=== PATIENT | male | born 1950 | race Caucasian/White ===

== ENCOUNTER 2020-04-01 10:06 | Observation (INO) | payer MEDICARE, OTHER ==
[~2020-04-01] VITALS: Ht 190.5 cm; Wt 180.0 kg
[2020-04-01 10:47] LABS: BASOPHILS % (AUTO) 0.3 % (0-1); EOSINOPHILS # (AUTO) 0.1 X10'3 (0-0.9); EOSINOPHILS % (AUTO) 1.1 % (0-6); HEMATOCRIT 44.9 % (42.0-52.0); HEMOGLOBIN 15.1 g/dl (14.0-17.9); LYMPHOCYTES # (AUTO) 1.7 X10'3 (1.1-4.8); LYMPHOCYTES % (AUTO) 24.9 % (21-51); MEAN CORPUSCULAR HEMOGLOBIN 30.6 PG (27.0-31.0); MEAN CORPUSCULAR HGB CONC 33.6 g/dL (33.0-36.5); MEAN PLATELET VOLUME 8.4 FL (7.4-10.4); MONOCYTES # (AUTO) 0.6 X10'3 (0-0.9); MONOCYTES % (AUTO) 8.4 % (2-12); NEUTROPHILS # (AUTO) 4.4 X10'3 (1.8-7.7); NEUTROPHILS % (AUTO) 65.3 % (42-75); PLATELET COUNT 202 X10'3 (140-440); RED BLOOD COUNT 4.93 X10'6 (4.70-6.10); RED CELL DISTRIBUTION WIDTH 13.4 % (11.5-14.5); WHITE BLOOD COUNT 6.8 X10'3 (4.5-11.0)
[2020-04-01 11:00] LABS: ALANINE AMINOTRANSFERASE 51 U/L (12-78); ALBUMIN 3.8 G/DL (3.4-5.0); ALKALINE PHOSPHATASE 82 IU/L (46-116); ANION GAP 3 (8-16); ASPARTATE AMINO TRANSFERASE 19 U/L (10-37); BILIRUBIN,TOTAL 0.4 MG/DL (0.1-1.0); BLOOD UREA NITROGEN 15 MG/DL (7-18); BUN/CREATININE RATIO 18.3 (5.4-32.0); CALCIUM 8.7 MG/DL (8.5-10.1); CHLORIDE 106 MMOL/L (99-107); CREATININE 0.82 MG/DL (0.60-1.10); GLUCOSE 108 MG/DL (70-104); POTASSIUM 3.8 MMOL/L (3.5-5.1); SODIUM 137 MMOL/L (135-145); TOTAL CARBON DIOXIDE 27.7 MMOL/L (24-32); TOTAL PROTEIN 7.6 G/DL (6.4-8.2); eGFR > 90 ML/MIN
[2020-04-01] MEDS ORDERED: metoprolol tartrate 1mg/ml inj IV ONE (11:25)
[2020-04-01] MEDS ORDERED: aspirin 81mg tab.chew PO ONE (11:40)
[2020-04-01] MEDS ORDERED: NO HOME MEDS (12:01)
[2020-04-01] MEDS ORDERED: acetaminophen 325mg tablet PO PRN (12:10)
[2020-04-01] MEDS ORDERED: ondansetron/PF 4mg/2ml inj IV PRN (12:10)
[2020-04-01] MEDS ORDERED: morphine 2 MG/ML inj. syringe IV PRN ×2 (12:10)
[2020-04-01] MEDS ORDERED: magnesium hydroxide 30ml (MOM) UD suspension PO PRN (12:10)
[2020-04-01] MEDS ORDERED: mag hydrox/Alum hydrox/simeth 30ml oral suspension PO PRN (12:10)
[2020-04-01] MEDS: normal saline 1000ml 1,000 ML IV SCH ×2 (12:17→22:07)
--- NOTE | 2020-04-01 13:23 | NUR ---
Report attempted, GILBERTO Frey to call back.
--- NOTE | 2020-04-01 13:45 | NUR ---
Received report from Bharati RN. Patient arrived on floor @ 1345. Patient alert, oriented and appropriate. He is in no apparent distress. Sheila has no c/o chest pain at this time.
[2020-04-01 13:56] VITALS: BP 142/88
[2020-04-01 15:00] VITALS: BP 148/91
[2020-04-01] MEDS ORDERED: metoprolol tartrate 1mg/ml inj IV PRN (16:25)
[2020-04-01] MEDS ORDERED: regadenoson 0.4mg/5ml syringe IV PRN (16:25)
[2020-04-01] MEDS ORDERED: nitroGLYCERIN 0.4mg SUBLingual tab SL PRN (16:25)
[2020-04-01] MEDS ORDERED: aminophylline 250mg/10ml inj. IV PRN (16:25)
[2020-04-01 18:00] VITALS: BP 136/82
--- NOTE | 2020-04-01 18:00 | NUR ---
Problems reprioritized. Patient report given, questions answered & plan of care reviewed with Kita RN[]. Patient resting comfortably in bed no c/o chest pain at this time. Patient alert, oriented, and appropriate.
[2020-04-01] MEDS: heparin, porcine 5000 units/ml vial SQ SCH (19:15)
[2020-04-01] MEDS: carVEDilol 3.125mg tablet PO SCH (19:15)
[2020-04-01 22:00] VITALS: BP 125/81
[2020-04-02] VITALS (10 sets, daily range): BP systolic 121–141; BP diastolic 80–88
--- NOTE | 2020-04-02 06:15 | NUR ---
Problems reprioritized. Patient report given, questions answered & plan of care reviewed with Fransisco MACIAS.
--- NOTE | 2020-04-02 06:46 | NUR ---
Patient in room PCU 3012. I have received report from Kita MACIAS and had the opportunity to ask questions and assume patient care.
[2020-04-02] MEDS: heparin, porcine 5000 units/ml vial SQ SCH (08:00)
[2020-04-02] MEDS ORDERED: aspirin 81mg tablet.DR PO SCH (08:00)
[2020-04-02] MEDS: carVEDilol 3.125mg tablet PO SCH (08:00)
--- NOTE | 2020-04-02 14:36 | NUR ---
Page sent to Dr. Pleitez: PAGER ID: [phone] MESSAGE: [id number] Scott Lorenzo: Lor results are negative. Thanks, [phone]
[2020-04-02] MEDS ORDERED: CARV3.12 PO (14:40)
--- NOTE | 2020-04-02 14:56 | NUR ---
Patient stable for discharge per MD order. No new Rx. IV discontinued with catheter in tact, electronic device monitor removed, patient belongings packed and sent with patient, wheeled down to lobby and driven home in private vehicle by .
== END 2020-04-02 15:55 | disposition home or self-care (01) ==
LOC: ER 10:07 → ED HOLD 12:07 → PCU 3S 13:38
PROVIDERS: ADMIT Family Medicine; ATTEND Family Medicine
DX: R07.89 Other chest pain (principal); R42 Dizziness and giddiness; R06.02 Shortness of breath; I10 Essential (primary) hypertension; E78.00 Pure hypercholesterolemia, unspecified; Z87.891 Personal history of nicotine dependence; Z79.899 Other long term (current) drug therapy
CPT/HCPCS: 36415; 71045; 78452; 80053; 83880; 84484; 85025; 87081; 93005; 93017; 96361; 96372; 96374; 99285; A9500; G0378; J1644; J2785; J7030; J3490

== ENCOUNTER 2020-04-17 05:57 | Day surgery (SDC) | payer MEDICARE, OTHER ==
[2020-04-16 08:40] LABS: BASOPHILS % (AUTO) 0.5 % (0-1); EOSINOPHILS # (AUTO) 0.1 X10'3 (0-0.9); EOSINOPHILS % (AUTO) 1.2 % (0-6); HEMATOCRIT 43.9 % (42.0-52.0); HEMOGLOBIN 14.8 g/dl (14.0-17.9); LYMPHOCYTES # (AUTO) 1.9 X10'3 (1.1-4.8); LYMPHOCYTES % (AUTO) 29.8 % (21-51); MEAN CORPUSCULAR HEMOGLOBIN 30.7 PG (27.0-31.0); MEAN CORPUSCULAR HGB CONC 33.6 g/dL (33.0-36.5); MEAN CORPUSCULAR VOLUME 91.4 FL (78-98); MEAN PLATELET VOLUME 8.6 FL (7.4-10.4); MONOCYTES # (AUTO) 0.5 X10'3 (0-0.9); MONOCYTES % (AUTO) 7.5 % (2-12); NEUTROPHILS # (AUTO) 3.9 X10'3 (1.8-7.7); PLATELET COUNT 203 X10'3 (140-440); RED BLOOD COUNT 4.81 X10'6 (4.70-6.10); RED CELL DISTRIBUTION WIDTH 13.8 % (11.5-14.5); WHITE BLOOD COUNT 6.4 X10'3 (4.5-11.0)
[2020-04-16 08:46] LABS: ALBUMIN 3.7 G/DL (3.4-5.0); ANION GAP 11 (8-16); BLOOD UREA NITROGEN 15 MG/DL (7-18); BUN/CREATININE RATIO 19.5 (5.4-32.0); CALCIUM 8.7 MG/DL (8.5-10.1); CHLORIDE 105 MMOL/L (99-107); CREATININE 0.77 MG/DL (0.60-1.10); GLUCOSE 96 MG/DL (70-104); POTASSIUM 3.9 MMOL/L (3.5-5.1); SODIUM 141 MMOL/L (135-145); TOTAL CARBON DIOXIDE 25.2 MMOL/L (24-32); eGFR > 90 ML/MIN
[2020-04-16 08:49] LABS: PARTIAL THROMBOPLASTIN TIME 27 SECONDS (22-32)
[~2020-04-17] VITALS: Ht 190.5 cm; Wt 124.0 kg
[2020-04-17] VITALS (10 sets, daily range): BP systolic 112–151; BP diastolic 67–85
[~2020-04-17 05:57] MED LIST: CARV3.12 PO
[2020-04-17] MEDS ORDERED: LORazepam 0.5 MG tablet PO PRN (06:10)
[2020-04-17] MEDS ORDERED: normal saline 1,000 ML IV SCH (06:10)
[2020-04-17] MEDS ORDERED: diphenhydrAMINE 25mg capsule PO PRN (06:10)
[2020-04-17] MEDS ORDERED: CARV6.253 PO (06:31)
[2020-04-17] MEDS ORDERED: ATOR20TA PO (06:43)
[2020-04-17] MEDS ORDERED: chromium PO (06:45)
[2020-04-17] MEDS ORDERED: GLUC-150 PO (06:46)
[2020-04-17] MEDS ORDERED: prevagen PO (06:47)
[2020-04-17] MEDS ORDERED: TURM500C4 PO (06:48)
[2020-04-17] MEDS ORDERED: fentaNYL/PF 50MCG/1 ML 2ML syringe ONE (07:35)
[2020-04-17] MEDS ORDERED: nitroGLYCERIN-Tridil 50MG/D5W 250 ML IV ONE (07:35)
[2020-04-17] MEDS ORDERED: midazolam 2 mg/2 ml injection ONE (07:35)
[2020-04-17] MEDS ORDERED: iohexol 350MG/ML 100ml bottle IV ONE (07:35)
[2020-04-17] MEDS ORDERED: iohexol 350 MG/ML 50ML vial IV ONE (07:35)
[2020-04-17] MEDS ORDERED: LIDOcaine 1% (10mg/ml)w/preservative injection 20ml MDV ONE (07:35)
[2020-04-17] MEDS ORDERED: heparin 1,000unit/ml 10ml vial 10 ML ONE (07:35)
[2020-04-17] MEDS ORDERED: verapamil 2.5 mg/ml inj IV ONE (07:35)
[2020-04-17 09:00] LABS: ISTAT HGB ART 14.6 g/dl (14.0-18.0); ISTAT Hct ART 43 %PCV (42-52); ISTAT O2 SATURATION ARTERIAL 94 % (95-98); ISTAT SOURCE ART
[2020-04-17] MEDS ORDERED: normal saline 1000ml 1,000 ML IV SCH (09:25)
== END 2020-04-17 14:10 | disposition home or self-care (01) ==
LOC: SSTAY O 05:57
PROVIDERS: ATTEND Internal Medicine Cardiovascular Disease
DX: R94.39 Abnormal result of other cardiovascular function study (principal); I25.10 Atherosclerotic heart disease of native coronary artery without angina pectoris; I10 Essential (primary) hypertension; E78.5 Hyperlipidemia, unspecified; E66.9 Obesity, unspecified; Z68.35 Body mass index [BMI] 35.0-35.9, adult; Z79.01 Long term (current) use of anticoagulants; Z87.891 Personal history of nicotine dependence; Z72.89 Other problems related to lifestyle; Z98.890 Other specified postprocedural states
CPT/HCPCS: 36415; 80048; 82803; 85014; 85025; 85610; 85730; 93005; 93460; 99152; 99153; C1769; C1894; J1644; J2001; J2250; J3010; Q9967; A4620; C1751; J3490

== ENCOUNTER 2023-07-02 18:42 | Emergency (ER) | payer MEDICARE, OTHER ==
[~2023-07-02] VITALS: Ht 190.5 cm; Wt 122.8 kg
[~2023-07-02 18:42] MED LIST changes: +ATOR20TA PO; -CARV3.12 PO; +CARV6.253 PO; +GLUC-150 PO; +TURM500C4 PO; +chromium PO; +prevagen PO
[2023-07-02 19:10] VITALS: TEMP 97.6
[2023-07-02 19:55] LABS: BASOPHILS % (AUTO) 0.5 % (0-1); EOSINOPHILS # (AUTO) 0.1 X10'3 (0-0.9); EOSINOPHILS % (AUTO) 1.5 % (0-6); HEMATOCRIT 44.8 % (42.0-52.0); HEMOGLOBIN 15.2 g/dl (14.0-17.9); LYMPHOCYTES # (AUTO) 2.2 X10'3 (1.1-4.8); LYMPHOCYTES % (AUTO) 27.2 % (21-51); MEAN CORPUSCULAR HEMOGLOBIN 31.8 PG (27.0-31.0); MEAN CORPUSCULAR HGB CONC 33.9 g/dL (33.0-36.5); MEAN CORPUSCULAR VOLUME 93.8 FL (78-98); MEAN PLATELET VOLUME 8.3 FL (7.4-10.4); MONOCYTES # (AUTO) 0.8 X10'3 (0-0.9); MONOCYTES % (AUTO) 9.8 % (2-12); PLATELET COUNT 220 X10'3 (140-440); RED BLOOD COUNT 4.77 X10'6 (4.70-6.10); RED CELL DISTRIBUTION WIDTH 13.8 % (11.5-14.5); WHITE BLOOD COUNT 8.3 X10'3 (4.5-11.0)
[2023-07-02 20:00] LABS: ALANINE AMINOTRANSFERASE 61 U/L (12-78); ALBUMIN 3.8 G/DL (3.4-5.0); ALBUMIN/GLOBULIN RATIO 1.1 (1.1-1.5); ALKALINE PHOSPHATASE 80 IU/L (46-116); ANION GAP 8 (8-16); ASPARTATE AMINO TRANSFERASE 29 U/L (10-37); BILIRUBIN,TOTAL 0.4 MG/DL (0.1-1.0); BLOOD UREA NITROGEN 16 MG/DL (7-18); BUN/CREATININE RATIO 20.5 (10.0-20.0); CALCIUM 9.1 MG/DL (8.5-10.1); CHLORIDE 103 MMOL/L (99-107); CREATININE 0.78 MG/DL (0.60-1.10); GLUCOSE 110 MG/DL (70-104); POTASSIUM 3.9 MMOL/L (3.5-5.1); SODIUM 138 MMOL/L (135-145); TOTAL CARBON DIOXIDE 27.4 MMOL/L (24-32); TOTAL PROTEIN 7.3 G/DL (6.4-8.2); eCRCL 105 ML/MIN; eGFR > 90 ML/MIN
[2023-07-02 20:08] LABS: PRO BRAIN NATRIURETIC PEPTIDE < 30 PG/ML (0-125)
[2023-07-02 20:43] VITALS: BP 168/103; PULSE 74; RESP 18; O2SAT 91
== END 2023-07-02 21:12 | disposition home or self-care (01) ==
LOC: ER 18:44
DX: R03.0 Elevated blood-pressure reading, without diagnosis of hypertension (principal); I10 Essential (primary) hypertension; R42 Dizziness and giddiness; E78.00 Pure hypercholesterolemia, unspecified; Z79.899 Other long term (current) drug therapy
CPT/HCPCS: 36415; 71045; 80053; 83880; 84484; 85025; 93005; 99285

== ENCOUNTER 2024-10-16 08:17 | Inpatient (IN) | payer MEDICARE, OTHER ==
[~2024-10-16] VITALS: Ht 190.5 cm; Wt 140.8 kg
[2024-10-16 09:10] LABS: BASOPHILS % (AUTO) 0.2 % (0-1); EOSINOPHILS # (AUTO) 0.1 X10'3 (0-0.9); EOSINOPHILS % (AUTO) 0.8 % (0-6); HEMATOCRIT 40.4 % (42.0-52.0); HEMOGLOBIN 13.6 g/dl (14.0-17.9); LYMPHOCYTES # (AUTO) 1.7 X10'3 (1.1-4.8); LYMPHOCYTES % (AUTO) 18.9 % (21-51); MEAN CORPUSCULAR HEMOGLOBIN 31.6 PG (27.0-31.0); MEAN CORPUSCULAR HGB CONC 33.7 g/dL (33.0-36.5); MEAN CORPUSCULAR VOLUME 93.8 FL (78-98); MEAN PLATELET VOLUME 8.4 FL (7.4-10.4); MONOCYTES # (AUTO) 0.6 X10'3 (0-0.9); MONOCYTES % (AUTO) 6.1 % (2-12); NEUTROPHILS # (AUTO) 6.7 X10'3 (1.8-7.7); PLATELET COUNT 203 X10'3 (140-440); RED CELL DISTRIBUTION WIDTH 14.3 % (11.5-14.5)
[2024-10-16 09:29] LABS: ALANINE AMINOTRANSFERASE 56 U/L (12-78); ALBUMIN 3.5 G/DL (3.4-5.0); ALKALINE PHOSPHATASE 64 IU/L (46-116); ANION GAP 6 (8-16); ASPARTATE AMINO TRANSFERASE 21 U/L (10-37); BILIRUBIN,TOTAL 0.6 MG/DL (0.1-1.0); BLOOD UREA NITROGEN 21 MG/DL (7-18); BUN/CREATININE RATIO 33.9 (10.0-20.0); CALCIUM 8.5 MG/DL (8.5-10.1); CHLORIDE 102 MMOL/L (99-107); CREATININE 0.62 MG/DL (0.60-1.10); GLUCOSE 140 MG/DL (70-104); LIPASE 42 U/L (16-77); POTASSIUM 3.9 MMOL/L (3.5-5.1); SODIUM 138 MMOL/L (135-145); TOTAL CARBON DIOXIDE 29.8 MMOL/L (24-32); TOTAL PROTEIN 7.1 G/DL (6.4-8.2); eCRCL 129 ML/MIN; eGFR > 90 ML/MIN
[2024-10-16] MEDS: normal saline 1000ML IV soln IVB ONE (10:19)
[2024-10-16] MEDS: pantoprazole 40 MG vial IV SCH ×2 (10:19→20:14)
[2024-10-16] MEDS ORDERED: LISI40TA13 PO (10:32)
[2024-10-16] MEDS ORDERED: HYDR12.55 PO (10:33)
[2024-10-16] MEDS ORDERED: PANT-47 PO (10:33)
[2024-10-16] MEDS ORDERED: HYDROcodone/acetaminophen 5mg/325mg tablet PO PRN (12:20)
[2024-10-16] MEDS ORDERED: magnesium sulf-water 2g/50mL 50 ML IV PRN (12:20)
[2024-10-16] MEDS ORDERED: mag hydrox/Alum hydrox/simeth 30ml oral suspension PO PRN (12:20)
[2024-10-16] MEDS ORDERED: potassium Cl 20 mEq SR tablet PO PRN ×2 (12:20)
[2024-10-16] MEDS ORDERED: potassium Cl 40MEQ/1/2NS 520ml 520 ML IV PRN (12:20)
[2024-10-16] MEDS ORDERED: magnesium sulf-water 4G/100mL 100 ML IV PRN (12:20)
[2024-10-16] MEDS ORDERED: acetaminophen 325mg tablet PO PRN ×2 (12:20)
[2024-10-16] MEDS ORDERED: ondansetron/PF 4mg/2ml inj IV PRN (12:20)
[2024-10-16] MEDS ORDERED: magnesium Cl slow-release 64mg tablet PO PRN (12:20)
[2024-10-16] MEDS ORDERED: HYDROcodone/acetaminophen 10/325mg tab PO PRN (12:20)
[2024-10-16] MEDS ORDERED: magnesium hydroxide 30ml (MOM) UD suspension PO PRN (12:20)
[2024-10-16] MEDS ORDERED: LORazepam 1 MG tablet PO PRN (12:25)
[2024-10-16] MEDS ORDERED: haloperidol lactate 5mg/ml inj IM PRN (12:25)
[2024-10-16] MEDS ORDERED: LORazepam 2 mg/ml vial IV PRN (12:25)
[2024-10-16] MEDS ORDERED: haloperidol 5mg tablet PO PRN (12:25)
[2024-10-16] MEDS: folic acid 1mg tablet PO ONE (12:32)
[2024-10-16] MEDS: thiamine 100mg tablet PO ONE (12:32)
[2024-10-16 14:58] LABS: OCCULT BLOOD STOOL POSITIVE (Neg)
[2024-10-16] MEDS: pantoprazole 40 MG vial IV ONE (15:29)
[2024-10-16] MEDS ORDERED: OXYM30SP26 BOTHNARES (19:53)
[2024-10-16] MEDS: K and/or MAG REPLACEMENT MC SCH (20:06)
[2024-10-16] MEDS: docusate sod 100mg capsule PO SCH (20:14)
[2024-10-16] MEDS: carvedilol 6.25mg tablet PO SCH (20:14)
[2024-10-16] MEDS: atorvastatin 20mg tablet PO SCH (21:00)
[2024-10-16] MEDS: oxymetazoline 15 ML nasal spray NS PRN (22:11)
[2024-10-17] VITALS (17 sets, daily range): BP systolic 131–162; BP diastolic 71–95; PULSE 77–89; RESP 10–20; TEMP 97.5–97.7; O2SAT 90–97
[2024-10-17 03:21] LABS: BASOPHILS % (AUTO) 0.3 % (0-1); EOSINOPHILS # (AUTO) 0.1 X10'3 (0-0.9); HEMATOCRIT 35.1 % (42.0-52.0); HEMOGLOBIN 12.1 g/dl (14.0-17.9); LYMPHOCYTES # (AUTO) 1.8 X10'3 (1.1-4.8); LYMPHOCYTES % (AUTO) 19.8 % (21-51); MEAN CORPUSCULAR HEMOGLOBIN 32.5 PG (27.0-31.0); MEAN CORPUSCULAR HGB CONC 34.5 g/dL (33.0-36.5); MEAN CORPUSCULAR VOLUME 94.3 FL (78-98); MEAN PLATELET VOLUME 8.4 FL (7.4-10.4); MONOCYTES # (AUTO) 0.6 X10'3 (0-0.9); MONOCYTES % (AUTO) 7.2 % (2-12); NEUTROPHILS # (AUTO) 6.3 X10'3 (1.8-7.7); NEUTROPHILS % (AUTO) 71.7 % (42-75); PLATELET COUNT 176 X10'3 (140-440); RED BLOOD COUNT 3.72 X10'6 (4.70-6.10); RED CELL DISTRIBUTION WIDTH 14.2 % (11.5-14.5); WHITE BLOOD COUNT 8.8 X10'3 (4.5-11.0)
[2024-10-17 03:40] LABS: ALANINE AMINOTRANSFERASE 48 U/L (12-78); ALBUMIN 3.1 G/DL (3.4-5.0); ALBUMIN/GLOBULIN RATIO 1.1 (1.1-1.5); ALKALINE PHOSPHATASE 59 IU/L (46-116); ANION GAP 5 (8-16); ASPARTATE AMINO TRANSFERASE 26 U/L (10-37); BILIRUBIN,TOTAL 0.5 MG/DL (0.1-1.0); BLOOD UREA NITROGEN 16 MG/DL (7-18); BUN/CREATININE RATIO 27.6 (10.0-20.0); CALCIUM 8.5 MG/DL (8.5-10.1); CHLORIDE 106 MMOL/L (99-107); CREATININE 0.58 MG/DL (0.60-1.10); GLUCOSE 126 MG/DL (70-104); MAGNESIUM 2.2 MG/DL (1.5-2.4); SODIUM 141 MMOL/L (135-145); TOTAL CARBON DIOXIDE 30.5 MMOL/L (24-32); eCRCL 138 ML/MIN; eGFR > 90 ML/MIN
[2024-10-17 04:01] LABS: POTASSIUM 4.1 MMOL/L (3.5-5.1)
[2024-10-17] MEDS ORDERED: MIDAZolam 1 MG/ML 5ML VIAL ONE (08:48)
[2024-10-17] MEDS ORDERED: fentaNYL/PF 50MCG/1 ML 2ML syringe ONE (08:48)
[2024-10-17] MEDS ORDERED: LIDOcaine 2% Viscous 15ml cup ONE (08:48)
[2024-10-17] MEDS ORDERED: simethicone 40mg/0.6ml oral drops 30ml ONE (08:52)
[2024-10-17] MEDS: folic acid 1mg tablet PO SCH (10:49)
[2024-10-17] MEDS: thiamine 100mg tablet PO SCH (10:50)
[2024-10-17] MEDS: lisinopril 20mg tablet PO SCH (10:50)
[2024-10-17] MEDS: HYDROchlorothiazide 12.5mg capsule PO SCH (10:50)
[2024-10-17] MEDS ORDERED: RISA150P IM (11:07)
[2024-10-17] MEDS ORDERED: PANT-47 PO (14:20)
[2024-10-17] MEDS ORDERED: pantoprazole 40mg Tablet.DR PO SCH (20:00)
== END 2024-10-17 15:15 | disposition home or self-care (01) | DRG 379 ==
LOC: ER 08:18 → UNDOADMIN 12:20 → ED HOLD 12:20 → ORTHO 4S 10-17 10:11
PROVIDERS: ADMIT Nurse Practitioner Family; ATTEND Nurse Practitioner Family
PROC: 0DB98ZX Excision of Duodenum, Via Natural or Artificial Opening Endoscopic, Diagnostic (ICD-10-PCS; principal; 2024-10-17)
PROC: 0DB78ZX Excision of Stomach, Pylorus, Via Natural or Artificial Opening Endoscopic, Diagnostic (ICD-10-PCS; 2024-10-17)
DX: K92.2 Gastrointestinal hemorrhage, unspecified (principal); K31.7 Polyp of stomach and duodenum; E78.00 Pure hypercholesterolemia, unspecified; F10.20 Alcohol dependence, uncomplicated; D64.9 Anemia, unspecified; R73.03 Prediabetes; I10 Essential (primary) hypertension; Z79.899 Other long term (current) drug therapy; Z87.891 Personal history of nicotine dependence
CPT/HCPCS: 36415; 43239; 80053; 82272; 83690; 83735; 85025; 87081; 99152; 99285; A4620; G0378; J2250; J2470; J3010; J7030